=== PATIENT | female | born 1940 | race Caucasian/White ===

== ENCOUNTER 2018-05-24 23:30 | Inpatient (IN) | payer OTHER ==
[~2018-05-24] VITALS: Ht 152.4 cm; Wt 86.2 kg
[2018-05-25] VITALS (33 sets, daily range): BP systolic 110–243; BP diastolic 40–166
[2018-05-25] MEDS ORDERED: SODIUM CHLORIDE 0.9% 1,000 ML IV ONE (01:24)
[2018-05-25 03:15] LABS: EOSINOPHILS % 1.5 % (0.0-5.0); HEMATOCRIT. 39.5 % (36.0-48.0); HEMOGLOBIN. 12.8 g/dL (12.0-16.0); LYMPHOCYTES % 19.6 % (20.0-50.0); MEAN CORPUSCULAR HEMOGLOBIN 27.6 pg (28.0-32.0); MEAN CORPUSCULAR VOLUME 85.3 fL (81.0-99.0); MEAN PLATELET VOLUME 9.3 fl (7.4-10.4); MONOCYTES % 7.8 % (2.0-8.0); NEUTROPHILS % 70.1 % (40.0-76.0); PLATELET 313 x1000/uL (130-400); RED BLOOD CELL COUNT 4.63 mill/uL (4.2-5.4); RED CELL DISTRIBUTION WIDTH 14.9 % (11.6-14.6)
[2018-05-25 03:21] LABS: INR 1.6; PROTHROMBIN TIME 15.8 sec (9.1-11.1)
[2018-05-25 03:53] LABS: CHLORIDE 101 mEq/L (98-107)
[2018-05-25 03:58] LABS: CLARITY URINE CLEAR (CLEAR); COLOR URINE YELLOW (YELLOW); KETONES URINE NEGATIVE (NEGATIVE); LEUKOCYTE ESTERASE URINE NEGATIVE (NEGATIVE); NITRITE URINE NEGATIVE (NEGATIVE); OCCULT BLOOD URINE 1+ (NEGATIVE); PROTEIN URINE 4+ (NEGATIVE); UROBILINOGEN URINE 0.2 E.U./dL (0.2-1.0)
[2018-05-25] MEDS ORDERED: METOPROLOL TARTRATE 50MG TABLET PO NR (12:30)
[2018-05-25] MEDS: NITROGLYCERIN 50MG PREMIX 250 ML IV SCH ×2 (13:05→18:46)
[2018-05-25] MEDS: CLONIDINE 0.1MG TABLET PO SCH ×2 (16:16→22:00)
[2018-05-25] MEDS: FUROSEMIDE 40MG/4ML VIAL IVP SCH (16:16)
[2018-05-25] MEDS ORDERED: VANCOMYCIN 1 G PREMIX 200 ML IV SCH (16:45)
[2018-05-25] MEDS ORDERED: ACETAMINOPHEN 650MG/20.3ML UDC GT PRN ×2 (16:45→20:30)
[2018-05-25] MEDS ORDERED: LORAZEPAM 2MG/ML CPJ IV PRN (16:45)
[2018-05-25] MEDS ORDERED: ONDANSETRON HCL 4MG/2ML INJ IV PRN ×2 (16:45→20:30)
[2018-05-25] MEDS ORDERED: DEXTROSE 50% WATER 50ML SYRINGE IV PRN (17:15)
[2018-05-25] MEDS ORDERED: WARF5TAB76 PO (17:16)
[2018-05-25] MEDS ORDERED: SERT50TA MT (17:16)
[2018-05-25] MEDS: BLOOD SUGAR DIAGNOSTIC STRIP TEST SCH ×2 (18:39→21:00)
[2018-05-25] MEDS: ENOXAPARIN 40MG/0.4ML SYR SUBCUT SCH (18:44)
[2018-05-25] MEDS: INSULIN LISPRO 100 UNITS/ML SUBCUT SCH ×2 (18:45→22:46)
[2018-05-25] MEDS ORDERED: VANCOMYCIN 1500MG in DEXTROSE 5% WATER 250ML IV NR (20:00)
[2018-05-25] MEDS ORDERED: HYDROCODONE/ACETAMINOPHEN 5/325MG TABLET PO PRN (20:30)
[2018-05-25] MEDS ORDERED: LORAZEPAM 0.5MG TABLET PO PRN (20:30)
[2018-05-25] MEDS ORDERED: ENOXAPARIN 40MG/0.4ML SYR SUBCUT SCH (20:30)
[2018-05-25] MEDS ORDERED: CLONIDINE 0.1MG TABLET PO PRN (20:30)
[2018-05-25] MEDS: METOPROLOL TARTRATE 50MG TABLET PO SCH (21:00)
[2018-05-25] MEDS ORDERED: ZOLPIDEM TARTRATE 5MG TABLET PO PRN (21:00)
[2018-05-25] MEDS: HYDRALAZINE HCL 50MG TABLET PO SCH (21:26)
[2018-05-25] MEDS ORDERED: CLONIDINE HCL 0.1MG/24HR PATCH TD SCH (22:30)
[2018-05-26] VITALS (64 sets, daily range): BP systolic 77–264; BP diastolic 23–190
[2018-05-26] MEDS: CLONIDINE 0.1MG TABLET PO SCH ×3 (03:25→21:04)
[2018-05-26 05:50] LABS: BASOPHILS % 0.6 % (0.0-2.0); EOSINOPHILS % 0.4 % (0.0-5.0); HEMATOCRIT. 38.6 % (36.0-48.0); HEMOGLOBIN. 12.5 g/dL (12.0-16.0); LYMPHOCYTES % 10.5 % (20.0-50.0); MEAN CORPUSCULAR HEMOGLOBIN 27.6 pg (28.0-32.0); MEAN CORPUSCULAR VOLUME 85.6 fL (81.0-99.0); MEAN PLATELET VOLUME 9.4 fl (7.4-10.4); MONOCYTES % 7.4 % (2.0-8.0); NEUTROPHILS % 81.1 % (40.0-76.0); PLATELET 310 x1000/uL (130-400); RED BLOOD CELL COUNT 4.51 mill/uL (4.2-5.4)
[2018-05-26] MEDS: HYDRALAZINE HCL 50MG TABLET PO SCH ×3 (07:04→21:04)
[2018-05-26] MEDS: BLOOD SUGAR DIAGNOSTIC STRIP TEST SCH ×4 (07:32→21:05)
[2018-05-26] MEDS ORDERED: LIDOCAINE HCL 1% 20ML VIAL (Pyxis) INJ ONE (08:01)
[2018-05-26 08:21] LABS: PHOSPHORUS 2.8 mg/dL (2.5-4.9)
[2018-05-26] MEDS: THIAMINE HCL 100MG TABLET PO SCH (09:00)
[2018-05-26] MEDS: ASPIRIN 81MG EC TABLET PO SCH (09:00)
[2018-05-26] MEDS: METOPROLOL TARTRATE 50MG TABLET PO SCH ×2 (09:00→20:43)
[2018-05-26] MEDS: FUROSEMIDE 40MG/4ML VIAL IVP SCH (09:48)
[2018-05-26] MEDS: INSULIN LISPRO 100 UNITS/ML SUBCUT SCH ×4 (09:51→21:00)
[2018-05-26] MEDS: INSULIN GLARGINE UD 100 UNITS/ML SYR SUBCUT SCH ×2 (11:37→21:05)
[2018-05-26] MEDS ORDERED: VANCOMYCIN 1500MG in DEXTROSE 5% WATER 250ML IV NR (12:00)
[2018-05-26] MEDS: NYSTATIN 100,000 UNITS/GM CREAM 15GM TOP SCH ×2 (15:37→21:07)
[2018-05-26] MEDS ORDERED: MAGNESIUM 2 G PREMIX 50 ML IV NR (16:00)
[2018-05-26] MEDS: ENOXAPARIN 40MG/0.4ML SYR SUBCUT SCH (17:27)
[2018-05-26] MEDS ORDERED: VANCOMYCIN 750 MG PREMIX 150 ML IV SCH (20:00)
[2018-05-26] MEDS: NYSTATIN 100,000 UNITS/GM OINT 15GM TOP SCH (21:04)
[2018-05-27] VITALS (50 sets, daily range): BP systolic 86–172; BP diastolic 30–76
[2018-05-27] MEDS: CLONIDINE 0.1MG TABLET PO SCH ×3 (05:25→21:56)
[2018-05-27] MEDS: HYDRALAZINE HCL 50MG TABLET PO SCH ×3 (05:25→21:56)
[2018-05-27 06:01] LABS: BASOPHILS % 0.8 % (0.0-2.0); EOSINOPHILS % 1.9 % (0.0-5.0); HEMATOCRIT. 35.4 % (36.0-48.0); HEMOGLOBIN. 11.6 g/dL (12.0-16.0); LYMPHOCYTES % 18.6 % (20.0-50.0); MEAN CORPUSCULAR HEMOGLOBIN 27.9 pg (28.0-32.0); MEAN CORPUSCULAR VOLUME 85.4 fL (81.0-99.0); MEAN PLATELET VOLUME 9.2 fl (7.4-10.4); MONOCYTES % 10.7 % (2.0-8.0); PLATELET 313 x1000/uL (130-400); RED BLOOD CELL COUNT 4.14 mill/uL (4.2-5.4); RED CELL DISTRIBUTION WIDTH 15.2 % (11.6-14.6)
[2018-05-27] MEDS: BLOOD SUGAR DIAGNOSTIC STRIP TEST SCH ×4 (07:18→20:46)
[2018-05-27] MEDS: THIAMINE HCL 100MG TABLET PO SCH (08:29)
[2018-05-27] MEDS: MAGNESIUM OXIDE 400MG TABLET PO SCH (08:29)
[2018-05-27] MEDS: METOPROLOL TARTRATE 50MG TABLET PO SCH ×2 (08:29→20:46)
[2018-05-27] MEDS: ASPIRIN 81MG EC TABLET PO SCH (08:29)
[2018-05-27] MEDS: FUROSEMIDE 40MG/4ML VIAL IVP SCH (08:29)
[2018-05-27] MEDS: NYSTATIN 100,000 UNITS/GM OINT 15GM TOP SCH ×2 (08:30→20:46)
[2018-05-27] MEDS: NYSTATIN 100,000 UNITS/GM CREAM 15GM TOP SCH ×2 (08:30→20:46)
[2018-05-27] MEDS: INSULIN LISPRO 100 UNITS/ML SUBCUT SCH ×4 (08:31→20:44)
[2018-05-27] MEDS: INSULIN GLARGINE UD 100 UNITS/ML SYR SUBCUT SCH ×2 (10:51→21:57)
[2018-05-27] MEDS: ENOXAPARIN 40MG/0.4ML SYR SUBCUT SCH (17:15)
[2018-05-27] MEDS ORDERED: VANCOMYCIN 1250MG in DEXTROSE 5% WATER 250ML IV SCH (23:00)
[2018-05-28] VITALS (13 sets, daily range): BP systolic 88–144; BP diastolic 28–102
[2018-05-28] MEDS ORDERED: VANCOMYCIN 750 MG PREMIX 150 ML IV NR (01:00)
[2018-05-28] MEDS: HYDRALAZINE HCL 50MG TABLET PO SCH ×3 (06:00→21:11)
[2018-05-28] MEDS: CLONIDINE 0.1MG TABLET PO SCH ×3 (06:00→21:11)
[2018-05-28] MEDS: BLOOD SUGAR DIAGNOSTIC STRIP TEST SCH ×4 (06:43→20:48)
[2018-05-28] MEDS: INSULIN LISPRO 100 UNITS/ML SUBCUT SCH ×4 (07:20→21:03)
[2018-05-28 07:21] LABS: BASOPHILS % 0.3 % (0.0-2.0); EOSINOPHILS % 1.1 % (0.0-5.0); HEMATOCRIT. 33.4 % (36.0-48.0); HEMOGLOBIN. 10.9 g/dL (12.0-16.0); LYMPHOCYTES % 16.1 % (20.0-50.0); MEAN CORPUSCULAR HEMOGLOBIN 27.7 pg (28.0-32.0); MEAN CORPUSCULAR VOLUME 84.8 fL (81.0-99.0); MEAN PLATELET VOLUME 9.7 fl (7.4-10.4); NEUTROPHILS % 73.5 % (40.0-76.0); PLATELET 291 x1000/uL (130-400); RED BLOOD CELL COUNT 3.95 mill/uL (4.2-5.4); RED CELL DISTRIBUTION WIDTH 15.1 % (11.6-14.6)
[2018-05-28] MEDS: THIAMINE HCL 100MG TABLET PO SCH (08:43)
[2018-05-28] MEDS: ASPIRIN 81MG EC TABLET PO SCH (08:44)
[2018-05-28] MEDS: MAGNESIUM OXIDE 400MG TABLET PO SCH (08:44)
[2018-05-28] MEDS: METOPROLOL TARTRATE 50MG TABLET PO SCH ×2 (08:44→21:11)
[2018-05-28] MEDS: NYSTATIN 100,000 UNITS/GM OINT 15GM TOP SCH ×2 (08:44→21:00)
[2018-05-28] MEDS: NYSTATIN 100,000 UNITS/GM CREAM 15GM TOP SCH ×2 (09:00→21:00)
[2018-05-28] MEDS: INSULIN GLARGINE UD 100 UNITS/ML SYR SUBCUT SCH ×2 (11:21→21:03)
[2018-05-28] MEDS: ENOXAPARIN 40MG/0.4ML SYR SUBCUT SCH (17:06)
[2018-05-28] MEDS ORDERED: LEVOFLOXACIN 500MG PREMIX 100 ML IV NR (18:00)
[2018-05-29] VITALS (9 sets, daily range): BP systolic 101–128; BP diastolic 40–64
[2018-05-29] MEDS: HYDRALAZINE HCL 50MG TABLET PO SCH ×2 (05:31→13:50)
[2018-05-29] MEDS: CLONIDINE 0.1MG TABLET PO SCH ×2 (05:31→13:49)
[2018-05-29] MEDS: BLOOD SUGAR DIAGNOSTIC STRIP TEST SCH ×2 (06:16→11:13)
[2018-05-29] MEDS: INSULIN LISPRO 100 UNITS/ML SUBCUT SCH ×2 (07:20→11:21)
[2018-05-29] MEDS: ASPIRIN 81MG EC TABLET PO SCH (08:38)
[2018-05-29] MEDS: METOPROLOL TARTRATE 50MG TABLET PO SCH ×2 (08:38→08:40)
[2018-05-29] MEDS: MAGNESIUM OXIDE 400MG TABLET PO SCH (08:38)
[2018-05-29] MEDS: NYSTATIN 100,000 UNITS/GM CREAM 15GM TOP SCH (08:39)
[2018-05-29] MEDS: THIAMINE HCL 100MG TABLET PO SCH (08:39)
[2018-05-29] MEDS: NYSTATIN 100,000 UNITS/GM OINT 15GM TOP SCH (08:39)
[2018-05-29] MEDS: INSULIN GLARGINE UD 100 UNITS/ML SYR SUBCUT SCH (11:20)
[2018-05-29] MEDS ORDERED: LEVOFLOXACIN 250MG PREMIX 50 ML IV SCH (14:00)
[2018-05-29] MEDS ORDERED: VANCOMYCIN 500 MG PREMIX 100 ML IV SCH (15:00)
== END 2018-05-29 17:45 | DRG 70 ==
LOC: ER 23:30 → CVICU 05-25 05:48 → EDBEDREQ 05-25 05:53 → EDBEDREQTM 05-25 05:53 → EDBEDREQSVC 05-25 12:55 → ENRESERV 05-25 13:29 → 3WST 05-28
PROVIDERS: ADMIT Internal Medicine Nephrology; ATTEND Internal Medicine Nephrology
PROC: 02H633Z Insertion of Infusion Device into Right Atrium, Percutaneous Approach (ICD-10-PCS; principal; 2018-05-26)
PROC: B244ZZZ Ultrasonography of Right Heart (ICD-10-PCS; 2018-05-26)
DX: G93.41 Metabolic encephalopathy (principal); E43 Unspecified severe protein-calorie malnutrition; D68.9 Coagulation defect, unspecified; N17.9 Acute kidney failure, unspecified; N39.0 Urinary tract infection, site not specified; I69.351 Hemiplegia and hemiparesis following cerebral infarction affecting right dominant side; I13.0 Hypertensive heart and chronic kidney disease with heart failure and stage 1 through stage 4 chronic kidney disease, or unspecified chronic kidney disease; I16.0 Hypertensive urgency; E11.65 Type 2 diabetes mellitus with hyperglycemia; L30.4 Erythema intertrigo; F03.90 Unspecified dementia, unspecified severity, without behavioral disturbance, psychotic disturbance, mood disturbance, and anxiety; N18.3 Chronic kidney disease, stage 3 (moderate); I25.10 Atherosclerotic heart disease of native coronary artery without angina pectoris; B35.3 Tinea pedis; E05.90 Thyrotoxicosis, unspecified without thyrotoxic crisis or storm; E11.22 Type 2 diabetes mellitus with diabetic chronic kidney disease; I50.9 Heart failure, unspecified; J44.9 Chronic obstructive pulmonary disease, unspecified; M21.612 Bunion of left foot; Z78.1 Physical restraint status; Z68.37 Body mass index [BMI] 37.0-37.9, adult; Z88.5 Allergy status to narcotic agent
CPT/HCPCS: 36415; 36569; 71045; 76937; 80048; 80202; 82962; 83605; 83735; 83880; 84100; 84134; 84484; 87077; 92610; 93005; 93306; 93970; 96374; 97162; 97530; 99285; A6261; C1725; C1893; J1650; J1815; J1940; J1956; J2060; J3370; J3475; J3490; J7030; J7040; J7050; J7060; A4315